=== PATIENT | male | born 1955 | race Caucasian/White ===

== ENCOUNTER 2020-01-28 09:00 | Outpatient (RCR) | payer MEDICARE, BC, SELFPAY ==
[2020-01-21 11:06] VITALS: BP 160/72; PULSE 68
--- NOTE | 2020-01-21 13:03 | MHC.PT.EP ---
[facility] [place] [facility] [place] [facility] [place] [facility] [address] Aba Delaney [address] [phone] F: [phone] F: [phone] F: [phone] F: [phone] Physical Therapy Plan of Care Date of Evaluation: 01/21/20 Date of Surgery: Diagnosis: vertigo Assessment: 64 y/o male referred to PT with vertigo. Reports dizziness for past 6 months. He has been treating for BPPV one year ago which helped. Describes dizziness as room spinning when he rolls in bed and other times, he just feels offbalance resulting in LOB at home more often. His symptoms lasts a few seconds. He is retired. He feels that the mask interferes with his vision and is also affecting his balance. Reports difficulty with gait, stairs, stepping on/off curbs, and rolling in bed. Pt is independent with all ADLS but is careful to avoid symptoms. Examination reveals decreased cervical AROM all planes, WNL saccades/smooth pursuit/visual tracking, (-) VBI, (-) Head thrust, poor static balance with eyes closed and on foam, DGI 12/24 (most significant deficits with H/V head turns, unable to step over an object, and stairs), and (+) for BPPV during R roll test for ageotropic nystsgamus and sx. He is a good candidate for PT based on age, goals, physical impairments and functional limitations. He would benefit from therapy 2x/week for 5 weeks for CRM and balance training. Frequency and Duration: The patient will be seen 2x/week for 5 weeks Short Term Goals: 3 weeks: 1. Pt will be (-) for nystagmus of reports of vertigo in all diagnostic directions B to resolutions of BPPV in 4 weeks Usp Goals: 5 weeks: 1. I with HEP 2. Improve DGI to 20/24 3. Pt to be able to functionally move in all planes without provocation of dizziness and return to PLOF in 4 weeks 4. Pt to be educated on sx and indications to return to therapy when needed in 4 weeks Treatment Plan: Modalities to reduce pain, spasms and effusion. Manual therapy to restore motion and function. Therapeutic exercise to improve strength and flexibility. Neuromuscular re-education for posture and balance. Therapeutic activities to return to functional activities of daily living. Please sign and return to therapist. Thank you for your referral.
[2020-01-23 11:38] LABS: MANUAL DIFF FLAG NO
[2020-01-23 11:43] LABS: Basophils Absolute Auto 0.1 X10*3/uL (0.0-0.2); Basophils Percent Auto 0.7 % (0-2); Eosinophils Absolute Auto 0.1 X10*3/uL (0.0-0.4); Eosinophils Percent Auto 1.6 % (0-4); Hematocrit 45.2 % (42-52); Hemoglobin 14.8 g/dl (14.0-18.0); Imm Gran Abs Auto 0.03 X10*3/uL (0.00-0.03); Imm Gran Pct Auto 0.4 % (0.0-0.4); Lymphocytes Absolute Auto 1.5 X10*3/uL (1.2-4.9); Lymphocytes Percent Auto 18.7 % (20-40); Mean Corpuscular HGB Conc 32.7 g/dl (31.0-36.0); Mean Corpuscular Hemoglobin 31.7 pg (27.0-33.0); Mean Corpuscular Volume 96.8 fL (80-98); Monocytes Absolute Auto 0.7 X10*3/uL (0.1-1.2); Neutrophils Absolute Auto 5.8 X10*3/uL (2.0-8.3); Neutrophils Percent Auto 70.6 % (45-73); Platelet Count 219 X10*3/uL (160-400); Red Blood Count 4.67 X10*6/uL (4.60-5.80); Red Cell Distribution Width 13.7 % (11.0-16.0); White Blood Count 8.2 X10*3/uL (4.8-10.8)
[2020-01-24 11:06] LABS: Immunoglobulin E 5 kU/L (<OR=114)
[2020-01-26 13:12] LABS: Immunoglobulin G Subclass 1 466 mg/dL (382-929); Immunoglobulin G Subclass 2 228 mg/dL (241-700); Immunoglobulin G Subclass 3 36 mg/dL (22-178); Immunoglobulin G Total 829 mg/dL (600-1540)
[2020-01-28 09:42] LABS: Immunoglobulin A <5 mg/dL (70-320); Immunoglobulin M 84 mg/dL (50-300)
== END 2020-03-16 15:52 | disposition other institution (70) ==
LOC: HO.PT 09:00
PROVIDERS: Visit Provider Otolaryngology
DX: R42 Dizziness and giddiness (principal)
CPT/HCPCS: 36415; 82784; 82785; 85025; 95992; 97162

== ENCOUNTER → 2020-08-05 09:11 | Outpatient (BNVA) | payer MEDICARE, BC, SELFPAY | PROVIDERS: Visit Provider Surgery | DX: E66.01 Morbid (severe) obesity due to excess calories (principal); Z68.42 Body mass index [BMI] 45.0-49.9, adult | CPT/HCPCS: 99202 ==

== ENCOUNTER 2020-08-12 08:59 | Outpatient (REF) | payer MEDICARE, BC, SELFPAY ==
[2020-08-13 12:42] LABS: H Pylori Breath Test NOT DETECTED (NOT DETECTED)
== END 2020-08-12 09:00 | disposition home or self-care (01) ==
LOC: HO.LNP 08:59
PROVIDERS: Surgery; PCP Family Medicine; Visit Provider Physician Assistant
DX: Z01.818 Encounter for other preprocedural examination (principal); Z11.0 Encounter for screening for intestinal infectious diseases
CPT/HCPCS: 83013; 99211

== ENCOUNTER 2020-08-13 10:20 | Outpatient (REF) | payer MEDICARE, BC, SELFPAY ==
--- NOTE | ~2020-08-13 | XR_ITS ---
EXAMINATION: XR CHEST CLINICAL INFORMATION: Shortness of breath COMPARISON: Previous chest x-ray and chest CTA July 2018 TECHNIQUE: 2 views of the chest were obtained. FINDINGS: The cardiac and mediastinal contours are normal. The lungs are clear. There is no pleural effusion or pneumothorax. There are degenerative changes of the spine. XR/XR chest 2V IMPRESSION: No evidence for acute disease in the chest.
--- NOTE | 2020-08-13 11:11 | ECG_ITS ---
Test Reason : R06.02 SOB Blood Pressure : / mmHG Vent. Rate : 049 BPM Atrial Rate : 049 BPM P-R Int : 182 ms QRS Dur : 088 ms QT Int : 428 ms P-R-T Axes : 036 037 048 degrees QTc Int : 386 ms Sinus bradycardia Otherwise normal ECG When compared with ECG of 23-JUL-2018 12:22, No significant change was found Referred By: Mallory Galarza Electronically Signed By:ANGELA KOTHARI MD
[2020-08-13 11:34] LABS: MANUAL DIFF FLAG NO
[2020-08-13 11:42] LABS: Basophils Absolute Auto 0.1 X10*3/uL (0.0-0.2); Basophils Percent Auto 0.5 % (0-2); Eosinophils Absolute Auto 0.1 X10*3/uL (0.0-0.4); Eosinophils Percent Auto 1.1 % (0-4); Hematocrit 46.8 % (42-52); Hemoglobin 15.1 g/dl (14.0-18.0); Imm Gran Abs Auto 0.05 X10*3/uL (0.00-0.03); Imm Gran Pct Auto 0.5 % (0.0-0.4); Lymphocytes Absolute Auto 1.6 X10*3/uL (1.2-4.9); Lymphocytes Percent Auto 14.9 % (20-40); Mean Corpuscular HGB Conc 32.3 g/dl (31.0-36.0); Mean Corpuscular Hemoglobin 30.6 pg (27.0-33.0); Mean Corpuscular Volume 94.9 fL (80-98); Mean Platelet Volume 11.2 fL (9.4-12.4); Monocytes Absolute Auto 0.7 X10*3/uL (0.1-1.2); Platelet Count 223 X10*3/uL (160-400); Red Blood Count 4.93 X10*6/uL (4.60-5.80); Red Cell Distribution Width 14.4 % (11.0-16.0); White Blood Count 10.5 X10*3/uL (4.8-10.8)
[2020-08-13 12:32] LABS: Thyroid Stimulating Hormone 2.03 uIU/mL (0.32-4.0); Vitamin D 25-OH Total 31.7 ng/mL (>30)
[2020-08-13 12:36] LABS: Thyroid Stimulating Hormone 2.05 uIU/mL (0.32-4.0)
[2020-08-13 13:03] LABS: Alanine Aminotransferase 39 U/L (0-40); Albumin Level 4.1 g/dL (3.5-5.0); Alkaline Phosphatase 113 U/L (39-117); Anion Gap 17 (12-20); Aspartate Amino Transferase 37 U/L (5-37); Bilirubin Total 0.3 mg/dL (0.0-1.0); Blood Urea Nitrogen 37 mg/dL (9-16); Calcium 9.9 mg/dL (8.4-10.2); Carbon Dioxide 26 mmol/L (22-29); Chloride 103 mmol/L (96-108); Cholesterol 146 mg/dL; Estimated Glomerular Filt Rate 57; Glucose Fasting 131 mg/dL (60-99); HDL Cholesterol 46 mg/dL; Iron 72 mcg/dL (45-160); LDL Cholesterol Calculated 65 mg/dl; Percent Iron Saturation 21 % (15-50); Potassium 4.8 mmol/L (3.3-5.1); Sodium 141 mmol/L (135-145); Total Iron Binding Capacity 342 mcg/dL (228-428); Total Protein 6.7 g/dL (6.5-8.0); Triglycerides 176 mg/dL; Unsaturated Iron Binding 270 ug/dL; Vitamin B12 > 2000 pg/mL (200-900)
[2020-08-13 13:11] LABS: Estimated Average Glucose 151 mg/dL; Hemoglobin A1c % 6.9 %
[2020-08-13 13:13] LABS: Alanine Aminotransferase 40 U/L (0-40); Albumin Level 4.1 g/dL (3.5-5.0); Alkaline Phosphatase 113 U/L (39-117); Anion Gap 17 (12-20); Aspartate Amino Transferase 37 U/L (5-37); Bilirubin Total 0.3 mg/dL (0.0-1.0); Blood Urea Nitrogen 37 mg/dL (9-16); Calcium 9.8 mg/dL (8.4-10.2); Carbon Dioxide 25 mmol/L (22-29); Chloride 103 mmol/L (96-108); Estimated Glomerular Filt Rate 58; Glucose Random 131 mg/dL (60-115); Potassium 4.7 mmol/L (3.3-5.1); Sodium 140 mmol/L (135-145); Total Protein 6.7 g/dL (6.5-8.0)
[2020-08-16 03:33] LABS: HIV AB/AG Nonreactive (Nonreactive); HIV Num 1 0.05 S/CO (0.00-0.99)
[2020-08-17 02:46] LABS: Zinc 75 mcg/dL (60-130)
[2020-08-17 10:02] LABS: Calcium (PTHI) 10.1 mg/dL (8.6-10.3); PTHI 18 pg/mL (14-64)
[2020-08-18 16:22] LABS: Vitamin B1 17 nmol/L (8-30)
[2020-08-18 20:01] LABS: Vitamin A 94 mcg/dL (38-98)
== END 2020-08-13 10:21 | disposition home or self-care (01) ==
LOC: HO.XRAY 10:20
PROVIDERS: Absent Provider Family Medicine; PCP Family Medicine; Visit Provider Surgery
DX: Z01.818 Encounter for other preprocedural examination (principal); Z11.4 Encounter for screening for human immunodeficiency virus [HIV]; R06.02 Shortness of breath; K91.2 Postsurgical malabsorption, not elsewhere classified; E03.9 Hypothyroidism, unspecified; E66.01 Morbid (severe) obesity due to excess calories; I10 Essential (primary) hypertension; Z90.3 Acquired absence of stomach [part of]
CPT/HCPCS: 36415; 71046; 80053; 80061; 82306; 82607; 83036; 83540; 83970; 84425; 84443; 84590; 84630; 85025; 86140; 87389; 93005

== ENCOUNTER → 2020-08-26 08:19 | Outpatient (BNVA) | payer MEDICARE, BC, SELFPAY | PROVIDERS: PCP Family Medicine; Visit Provider Surgery | CPT/HCPCS: Q3014 ==

== ENCOUNTER → 2020-09-27 08:12 | Outpatient (BNVA) | payer MEDICARE, BC, SELFPAY | PROVIDERS: PCP Family Medicine; Visit Provider Dietitian, Registered | DX: E66.01 Morbid (severe) obesity due to excess calories (principal); Z68.41 Body mass index [BMI] 40.0-44.9, adult | CPT/HCPCS: 97802 ==

== ENCOUNTER → 2020-12-07 09:00 | Outpatient (BNVA) | payer MEDICARE, BC, SELFPAY | PROVIDERS: PCP Family Medicine; Referring Provider Family Medicine; Visit Provider Surgery | DX: E66.01 Morbid (severe) obesity due to excess calories (principal); Z68.42 Body mass index [BMI] 45.0-49.9, adult | CPT/HCPCS: 99212 ==

== ENCOUNTER 2021-12-15 15:24 | Outpatient (REF) | payer MEDICARE, BC, SELFPAY | END 2021-12-15 15:25 | disposition home or self-care (01) | LOC: HO.LNP 15:24 | PROVIDERS: Visit Provider Family Medicine | DX: Z13.89 Encounter for screening for other disorder (principal) ==

== ENCOUNTER 2021-12-16 14:03 | Outpatient (REF) | payer MEDICARE, BC, SELFPAY ==
[2021-12-16 14:51] LABS: Influenza A PCR NEGATIVE (Negative); Influenza B PCR NEGATIVE (Negative); Resp Syncy Virus RNA Qual PCR NEGATIVE (Negative); SARS COV2 PCR INHOUSE NEGATIVE (Negative)
== END 2021-12-16 14:04 | disposition home or self-care (01) ==
LOC: HO.LNP 14:03
PROVIDERS: Visit Provider Nurse Practitioner Family
DX: Z20.822 Contact with and (suspected) exposure to COVID-19 (principal); B34.9 Viral infection, unspecified
CPT/HCPCS: 0241U

== ENCOUNTER 2021-12-29 11:00 | Outpatient (RCR) | payer MEDICARE, BC, SELFPAY ==
[2021-09-27 11:02] VITALS: BP 142/60; PULSE 54; O2SAT 96
== END 2022-01-30 13:34 | disposition home or self-care (01) ==
LOC: HO.PTWFD 11:00
PROVIDERS: PCP Family Medicine; Visit Provider Family Medicine
DX: M54.32 Sciatica, left side (principal)
CPT/HCPCS: 97110; 97140; 97163; 97530; 97535

== ENCOUNTER 2023-02-01 11:00 | Outpatient (RCR) | payer MEDICARE, BC, SELFPAY ==
[2023-01-12 11:16] VITALS: BP 138/70; PULSE 66; O2SAT 98
== END 2023-04-03 13:28 | disposition home or self-care (01) ==
LOC: HO.PTWFD 11:00
PROVIDERS: PCP Family Medicine; Visit Provider Family Medicine
DX: M54.16 Radiculopathy, lumbar region (principal)
CPT/HCPCS: 97110; 97140; 97163; 97535